=== PATIENT | male | born 1955 | race Caucasian/White ===

== ENCOUNTER → 2019-11-26 | Outpatient (CLI) | payer OTHER ==
--- NOTE | 2019-11-26 14:42 | XR ---
EXAMINATION TYPE: XR chest 2V DATE OF EXAM: 11/26/2019 COMPARISON: None INDICATION: COPD, short of breath TECHNIQUE: Frontal and lateral views of the chest are obtained. FINDINGS: The heart size is normal. The pulmonary vasculature is normal. The lungs are clear. There is hyperinflation flattening the diaphragms compatible COPD. IMPRESSION: 1. No acute pulmonary process. 2. COPD
== END | disposition home or self-care (01) ==
LOC: RADXRMAIN 12:18
PROVIDERS: ATTEND Family Medicine
DX: J44.9 Chronic obstructive pulmonary disease, unspecified (principal)
CPT/HCPCS: 71046

== ENCOUNTER → 2021-02-02 | Outpatient (CLI) | payer OTHER ==
--- NOTE | 2021-02-03 02:15 | CT ---
EXAMINATION TYPE: CT chest wo con DATE OF EXAM: 02/02/2021 COMPARISON: None HISTORY: COPD, AAA CT DLP: 536 mGycm, Automated exposure control for dose reduction was used. CONTRAST: Performed injected with 0 mL of Isovue 300. TECHNIQUE: Axial images were obtained at 5 mm thick sections. Reconstructed images are reviewed on [employer] computer in the coronal plane. FINDINGS: Emphysematous changes are present. Calcified granulomas within the right upper lung field. This is eccentric within the anterior soft ti ssue and adjacent neoplasm is not excluded. This could be related to scarring. This area measures 0.5 cm. Series 4 image 15. Some scarring may be within the anterior right upper lobe measuring 0.6 cm. S eries 4 image 16. No enlarged mediastinal or hilar adenopathy is evident. The ascending aorta diameter at the level o f the main pulmonary artery is 4.6 cm. The main pulmonary artery diameter at the bifurcation is 3.1 cm. Mild Coronary artery calcifications present. Limited CT sections are obtained through the upper abdomen. Small hiatal hernia is present. IMPRESSIONS: 1. Small soft tissue density may be related to scarring with an adjacent granuloma. However, neoplasm is not excluded and short-term follow-up is recommended with follow-up exam in 6 months. 2. Extensive emphysematous change. 3. Ascending thoracic aortic aneurysm measuring 4.5 cm.
== END | disposition home or self-care (01) ==
LOC: RADCTMAIN 12:41
PROVIDERS: ATTEND Family Medicine
DX: J43.9 Emphysema, unspecified (principal); I71.2 Thoracic aortic aneurysm, without rupture
CPT/HCPCS: 71250

== ENCOUNTER → 2021-06-18 | Outpatient (CLI) | payer OTHER ==
--- NOTE | 2021-06-20 11:42 | CA ---
Transthoracic Echo Report Name: Ashvin Palacios Age: 65 Gender: M : 1955 Exam Date: 06/18/2021 14:00 Exam Location: [facility] Ht (in): 72 Wt (lb): 180 Ordering Physician: Chacha Spring MD Attending/Referring Phys: [employer] Paula Mckee RDCS Procedure CPT: Indications: I25.3 aneurysm of heart Cardiac Hx: Technical Quality: Fair Contrast 1: Total Dose (mL): Contrast 2: Total Dose (mL): MEASUREMENTS (Male / Female) Normal Values 2D ECHO LV Diastolic Diameter PLAX 3.7 cm 4.2 - 5.9 / 3.9 - 5.3 cm LV Systolic Diameter PLAX 2.2 cm IVS Diastolic Thickness 1.2 cm 0.6 - 1.0 / 0.6 - 0.9 cm LVPW Diastolic Thickness 1.6 cm 0.6 - 1.0 / 0.6 - 0.9 cm LV Relative Wall Thickness 0.8 LA Volume 38.9 cm 18 - 58 / 22 - 52 cm M-MODE Aortic Root Diameter MM 3.2 cm AV Cusp Separation MM 2.0 cm DOPPLER AV Peak Velocity 131.5 cm/s AV Peak Gradient 6.9 mmHg LVOT Peak Velocity 113.5 cm/s LVOT Peak Gradient 5.1 mmHg MV Area PHT 3.3 cm Mitral E Point Velocity 68.8 cm/s Mitral A Point Velocity 83.5 cm/s Mitral E to A Ratio 0.8 MV Deceleration Time 232.9 ms TR Peak Velocity 208.9 cm/s TR Peak Gradient 17.5 mmHg Right Ventricular Systolic Press 22.5 mmHg FINDINGS Left Ventricle Mildly increased septal wall thickness. Left ventricular ejection fraction is estimated at 55-60 %. Right Ventricle The right ventricle is normal in size and function. Right Atrium The right atrium is normal in size. Left Atrium The left atrium is normal in size. Mitral Valve Structurally normal mitral valve without significant stenosis or prolapse. Trace mitral regurgitation. Aortic Valve Structurally normal aortic valve without significant sclerosis or stenosis. There is no aortic regurgitation. Tricuspid Valve Structurally normal tricuspid valve without significant stenosis. Pulmonary artery systolic pressure is normal. Mild tricuspid regurgitation. Pulmonic Valve Structurally normal pulmonic valve without significant stenosis. Trace to mild pulmonic regurgitation. Pericardium Normal pericardium without effusion. Aorta Normal aortic root dimension. CONCLUSIONS Mild left ventricle hypertrophy with normal LV systolic function No significant valvular abnormalities Previewed by: Dr. Jah Salcedo MD (Electronically Signed) Final Date: 20 June 2021 11:41
== END | disposition home or self-care (01) ==
LOC: RADECHMAIN 14:00
PROVIDERS: ATTEND Surgery
DX: I51.7 Cardiomegaly (principal)
CPT/HCPCS: 93306

== ENCOUNTER → 2022-01-31 | Outpatient (CLI) | payer OTHER ==
--- NOTE | 2022-01-31 14:40 | CT ---
EXAMINATION TYPE: CT angio chest CT DLP: 572.80 mGycm, Automated exposure control for dose reduction was used. DATE OF EXAM: 01/31/2022 1:46 PM COMPARISON: 02/02/2021 CT chest CLINICAL INDICATION:Male, 66 years old with history of I71.20 thoracic aortic aneurysm. TECHNIQUE/CONTRAST: CTA scan of the thorax is performed without and with IV Contrast, patient injected with 100 mL of Iso jd 370, pulmonary embolism protocol. MIP images are created and reviewed. FINDINGS: Lungs/Pleura: No evidence of focal consolidation, pleural effusion or pneumothorax. Centrilobular and paraseptal emphysema changes. Few scattered areas of nodular-like scarring in the right lung apex ap pears stable. Airway: Large airways are patent. Heart: Heart is within normal limits for size.. Vasculature: Ascending thoracic aorta ectasia measuring up to 4.7 cm similar to prior in 2020. The re mainder of the aorta does not demonstrate evidence for intramural hematoma. Visualized portions of th e pulmonary arteries centrally are without evidence for filling defect. The aortic arch and right ves sels are patent. The descending thoracic aorta is within normal limits for size. Visualized abdominal aorta is within normal limits for size. Scattered atherosclerosis of calcified and noncalcified plaq ue identified. Mediastinum: No gross evidence of adenopathy. Musculoskeletal: No acute osseous abnormalities Soft Tissues: Unremarkable. Lower neck: No significant findings. Upper Abdomen: No significant findings. IMPRESSION: 1. Similar ascending thoracic aorta ectasia measuring up to 4.7 cm. 2. No evidence of aortic dissection or aneurysmal dilation. 3. Mild atherosclerosis of the arterial vasculature. 4. Moderate emphysema changes
== END | disposition home or self-care (01) ==
LOC: RADCTMAIN 13:04
PROVIDERS: ATTEND Surgery
DX: I77.810 Thoracic aortic ectasia (principal); J43.9 Emphysema, unspecified; I70.8 Atherosclerosis of other arteries
CPT/HCPCS: 71275; Q9967